=== PATIENT | female | born 1985 | race Caucasian/White ===

== ENCOUNTER 2019-02-24 07:37 | Emergency (ER) | payer OTHER ==
[2019-02-24 08:02] VITALS: BP 137/93; PULSE 85; TEMP 98.5; BMI 46.5
--- NOTE | 2019-02-24 08:26 | PDOC ---
*Physical Exam - Vital Signs Last Vital Signs Temp Pulse Resp BP Pulse Ox 98.5 F 85 19 137/93 99 02/24/19 07:43 02/24/19 07:43 02/24/19 07:43 02/24/19 07:43 02/24/19 07:43 - Physical Exam Comments: 02/24/19 08:25 The patient was examined by SUNITA Smith [] under my direct supervision. I personally evaluated the patient. I concur with the above findings and the plan of care. Discharge - Discharge Information Problems reviewed: Yes Clinical Impression/Diagnosis: Laceration Condition: Stable Disposition: HOME - Follow up/Referral - Patient Discharge Instructions Additional Instructions: Keep area clean and dry Apply bacitracin twice a day If you develop fever, chills, surrounding redness or discharge from the wound return to your nearest ER immediately Take ibuprofen or acetaminophen every 6 hours as needed for pain - Post Discharge Activity
[2019-02-24] MEDS ORDERED: TETANUS AND DIPHTHERIA TOXOID 0.5 ML DISP.SYRIN IM ONE (08:38)
[2019-02-24] MEDS ORDERED: DIPHTH,PERTUSS(ACELL),TET 0.5 ML DISP.SYRIN IM ONE ×2 (08:55→08:57)
--- NOTE | 2019-02-24 09:45 | PDOC ---
History of Present Illness - General Chief Complaint: Injury Stated Complaint: LACERATION Time Seen by Provider: 02/24/19 08:14 History Source: Patient Exam Limitations: No Limitations - History of Present Illness Initial Comments: 02/24/19 09:40 34-year-old female accompanied by her denies past medical history presents complaining of wound to right lower extremity sustained 1 hour prior to arrival while at home. She was leaning over a metal dog cage when the right lower extremity got caught against the cage causing her injury. Denies striking the ground, head injury or any other complaints. Unknown tetanus status. ROS: GENERAL/CONSTITUTIONAL: No fever, chills, weakness, dizziness HEAD, EYES, EARS, NOSE AND THROAT: No changes in vision, No ear pain or discharge, No sore throat CARDIOVASCULAR: No chest pain RESPIRATORY: No shortness of breath or cough GASTROINTESTINAL: No pain, nausea, vomiting, diarrhea or constipation GENITOURINARY: No dysuria MUSCULOSKELETAL: Laceration to right lower extremity SKIN: No rash NEUROLOGIC: No headache, vertigo, loss of consciousness, or loss of sensation PE: GENERAL: well-appearing, NAD HEAD: NCAT EYES: Pupils equal, round and reactive to light, sclera anicteric, conjunctiva clear ENT: pharynx: no erythema, no exudate, uvula midline NECK: supple CHEST: nontender RESP: clear, no w/r/r CARDIO: rrr, no m/g/r ABD: +BS, soft, nontender, non distended BACK: no midline spinal ttp, no CVAT EXTREMITIES: 5 cm x 2 cm curved laceration to right lower extremity, mid tib- fib area, no active bleeding, minimal swelling noted, normal range of motion NEUROLOGICAL: Normal speech, normal gait SKIN: Warm, Dry Past History - Past Medical History Allergies/Adverse Reactions: Allergies Allergy/AdvReac Type Severity Reaction Status Date / Time amoxicillin Allergy Verified 02/24/19 07:45 COPD: No - Psycho Social/Smoking Cessation Hx Smoking History: Never smoked Information on smoking cessation initiated: No Hx Alcohol Use: No Drug/Substance Use Hx: No *Physical Exam - Vital Signs Last Vital Signs Temp Pulse Resp BP Pulse Ox 98.5 F 85 19 137/93 99 02/24/19 07:43 02/24/19 07:43 02/24/19 07:43 02/24/19 07:43 02/24/19 07:43 ED Treatment Course - Medications Given in the ED: ED Medications Discontinued Medications Generic Name Dose Route Start Last Admin Trade Name Ashlyn PRN Reason Stop Dose Admin Diphtheria/Tetanus/Acell Pertussis 0.5 ml 02/24/19 08:57 02/24/19 09:08 Boostrix - IM 02/24/19 08:58 0.5 ml .ONCE ONE Administration Medical Decision Making - Medical Decision Making 02/24/19 09:43 34-year-old female presents with laceration to the right lower extremity Tetanus ordered Irrigated wound with approximately 300 cc of normal saline 9 sutures placed simple interrupted with 4.0 nylon Bacitracin and sterile dressing applied Wound care instructions return precautions advised Discharge - Discharge Information Problems reviewed: Yes Clinical Impression/Diagnosis: Laceration Condition: Stable Disposition: HOME - Admission No - Follow up/Referral - Patient Discharge Instructions Additional Instructions: Keep area clean and dry Apply bacitracin twice a day If you develop fever, chills, surrounding redness or discharge from the wound return to your nearest ER immediately Take ibuprofen or acetaminophen every 6 hours as needed for pain - Post Discharge Activity
== END 2019-02-24 10:05 | disposition home or self-care (01) ==
LOC: JER 07:37
PROC: 3E0234Z Introduction of Serum, Toxoid and Vaccine into Muscle, Percutaneous Approach (ICD-10-PCS; principal; 2019-02-24)
PROC: 0HQKXZZ Repair Right Lower Leg Skin, External Approach (ICD-10-PCS; 2019-02-24)
DX: S81.811A Laceration without foreign body, right lower leg, initial encounter (principal); W22.03XA Walked into furniture, initial encounter; Y93.89 Activity, other specified; Y92.89 Other specified places as the place of occurrence of the external cause
CPT/HCPCS: 90715; 99281-25

== ENCOUNTER 2019-03-11 15:29 | Emergency (ER) | payer OTHER ==
[2019-03-11 16:30] VITALS: BP 129/73; PULSE 77; TEMP 98; BMI 47.4
--- NOTE | 2019-03-11 16:50 | PDOC ---
History of Present Illness - General Chief Complaint: Edema Stated Complaint: RT LEG SWELLING Time Seen by Provider: 03/11/19 15:56 - History of Present Illness Initial Comments: 03/11/19 16:47 34 years old no significant past medical history status post a laceration to her right lower leg on January 24 recent travel to the does have chronic leg swelling when traveling went to urgent care to have stitches removed today leg is well-appearing no fever no redness no signs of cellulitis however legs appeared swollen to the urgent care and patient was sent to the ED for ultrasound to rule out DVT no chest pain or shortness of breath leg swelling per patient is chronic happens often after travel persistent constant no exacerbating or worsening symptoms. Past History - Past Medical History Allergies/Adverse Reactions: Allergies Allergy/AdvReac Type Severity Reaction Status Date / Time amoxicillin Allergy Verified 03/11/19 15:31 Home Medications: Ambulatory Orders Bupropion HCl [Wellbutrin -] 200 mg PO ASDIR 03/11/19 Cyclobenzaprine HCl [Flexeril -] 10 mg PO PRN PRN 03/11/19 Gabapentin 100 mg PO ASDIR 03/11/19 COPD: No - Psycho Social/Smoking Cessation Hx Smoking History: Never smoked Have you smoked in the past 12 months: No Information on smoking cessation initiated: No Hx Alcohol Use: No Drug/Substance Use Hx: No Review of Systems - Review of Systems Comments:: 03/11/19 16:48 ROS: A complete review of 10 out of 10 review of systems is taken and is negative apart from what is previously mentioned below and in the HPI. *Physical Exam - Vital Signs Last Vital Signs Temp Pulse Resp BP Pulse Ox 98 F 77 20 129/73 100 03/11/19 15:30 03/11/19 15:30 03/11/19 15:30 03/11/19 15:30 03/11/19 15:30 - Physical Exam 03/11/19 16:48 Vitals: Triage Vital signs reviewed General Appearance: No acute distress, well nourished well developed, Head: Atraumatic, Extremities: Full range of motion to all extremities, no cyanosis, clubbing, or edema bilateral swollen legs symmetric left lower extremity with Steri-Strips in place from urgent care no surrounding redness cellulitis streaking red lines lymphangitic spread signs of infection Skin: Warm and dry, no rashes or lesions, no rash, no petechiae Neuro:, strength intact to all extremities, sensation intact to all extremities , gait normal Psych: Normal mood, normal affect ED Treatment Course - RADIOLOGY Radiology Studies Ordered: Category Date Time Status DUPLEX VASCUL [id number] [US] Stat Ultrasound 03/11/19 15:48 Completed Medical Decision Making - Medical Decision Making 03/11/19 16:49 Well-appearing no apparent distress into the emergency department to rule out DVT No evidence of unilateral leg swelling or infection on physical examination Ultrasounds negative for DVT We will recommend bacitracin close monitoring compression stockings when traveling Findings, the need for follow-up and strict return instructions discussed with patient. Discharge - Discharge Information Problems reviewed: Yes Clinical Impression/Diagnosis: Laceration Disposition: HOME - Admission No - Follow up/Referral - Patient Discharge Instructions Patient Printed Discharge Instructions: DI for Suture Removal Additional Instructions: Apply bacitracin twice a day to the area. Keep a close eye and return to ED for any signs of infection any unilateral leg swelling any chest pain shortness of breath or for any concerns. Try to use compression stockings to alleviate leg swelling follow-up with your doctor within 1 to 2 weeks. - Post Discharge Activity
== END 2019-03-11 17:08 | disposition home or self-care (01) ==
LOC: FER 15:29
DX: Z48.02 Encounter for removal of sutures (principal); Z88.8 Allergy status to other drugs, medicaments and biological substances
CPT/HCPCS: 93970-TC; 99282-25